=== PATIENT | male | born 1980 | race African-American/Black ===

== ENCOUNTER 2024-05-21 17:34 | Emergency (ER) | payer MEDICAID, OTHER ==
[~2024-05-21] VITALS: Ht 195.6 cm; Wt 78.0 kg
[~2024-05-21 17:34] MED LIST: AMOX1TAB16 MT; SULF1TAB48 MT
[2024-05-21 17:40] VITALS: BP 151/94; TEMP 97.5; O2SAT 99
[2024-05-21 17:44] VITALS: PULSE 110; RESP 17; O2SAT 98
== END 2024-05-21 20:26 | disposition left against medical advice (07) ==
LOC: ER 17:34
DX: R06.02 Shortness of breath (principal); Z53.21 Procedure and treatment not carried out due to patient leaving prior to being seen by health care provider
CPT/HCPCS: 93005

== ENCOUNTER 2024-07-05 12:28 | Emergency (ER) | payer MEDICAID, OTHER ==
[~2024-07-05] VITALS: Ht 195.6 cm; Wt 100.0 kg
[2024-07-05 12:33] VITALS: O2SAT 100
[2024-07-05] MEDS ORDERED: ONDANSETRON HCL 4MG/2ML INJ IV STA (13:02)
[2024-07-05] MEDS ORDERED: MORPHINE SULFATE 4 MG/ML INJ (FOR IV/IM USE) IV STA (13:02)
[2024-07-05] MEDS ORDERED: VANCOMYCIN 1G PREMIX 200 ML IV SCH ×2 (13:15)
[2024-07-05 14:57] LABS: CLARITY URINE CLEAR (CLEAR); COLOR URINE YELLOW (YELLOW); GLUCOSE URINE 3+ (NEGATIVE); KETONES URINE NEGATIVE (NEGATIVE); LEUKOCYTE ESTERASE URINE NEGATIVE (NEGATIVE); NITRITE URINE NEGATIVE (NEGATIVE); OCCULT BLOOD URINE NEGATIVE (NEGATIVE); PROTEIN URINE TRACE (NEGATIVE); SPECIFIC GRAVITY URINE 1.034 (1.005-1.030)
[2024-07-05 15:01] LABS: BASOPHILS % 0.9 % (0.0-2.0); EOSINOPHILS % 2.2 % (0.0-5.0); HEMATOCRIT. 41.3 % (42.0-52.0); HEMOGLOBIN. 14.1 g/dL (14.0-18.0); LYMPHOCYTES % 14.8 % (20.0-50.0); MEAN CORPUSCULAR HEMOGLOBIN 30.4 pg (28.0-32.0); MEAN CORPUSCULAR HGB CONC 34.2 g/dL (31.0-37.0); MONOCYTES % 7.4 % (2.0-8.0); NEUTROPHILS % 74.7 % (40.0-76.0); RED BLOOD CELL COUNT 4.64 mill/uL (4.7-6.1); RED CELL DISTRIBUTION WIDTH 13.4 % (11.6-14.6); WHITE BLOOD COUNT 9.7 x1000/uL (4.5-11.0)
[2024-07-05 15:05] LABS: CHLORIDE 97 mEq/L (98-107); POTASSIUM 3.6 mEq/L (3.5-5.1); SODIUM 132 mEq/L (136-145)
[2024-07-05 15:06] LABS: CARBON DIOXIDE 31 mEq/L (21-32)
[2024-07-05 15:07] LABS: CALCIUM 9.3 mg/dL (8.7-10.4)
[2024-07-05 15:10] LABS: DIFFERENTIAL COMMENT 1; PROTHROMBIN TIME 11.3 sec (9.6-11.0)
[2024-07-05 15:11] LABS: CREATININE 0.9 mg/dL (0.6-1.3); GLUCOSE 304 mg/dL (70-105); UREA NITROGEN BLOOD 7 mg/dL (9-23)
[2024-07-05 15:20] LABS: MUCUS URINE TRACE /lpf (NONE/TRACE); SQUAMOUS EPITHELIAL CELL URINE 1+ /lpf (RARE/1+)
[2024-07-05 15:21] LABS: BACTERIA URINE 1+; RBC URINE 0-2 /hpf (0-2); WBC URINE 0-2 /hpf (0-2)
[2024-07-05 15:22] LABS: MEAN PLATELET VOLUME 8.4 fl (7.4-10.4); PLATELET 376 x1000/uL (130-400)
[2024-07-05] MEDS: ONDANSETRON HCL 4MG/2ML INJ IV NR (15:36)
[2024-07-05] MEDS: MORPHINE SULFATE 4 MG/ML INJ (FOR IV/IM USE) IV NR (15:36)
[2024-07-05] MEDS: PIPERACILLIN/TAZO 3.375G/50ML 50 ML IV STA (15:36)
[2024-07-05] MEDS: SODIUM CHLORIDE 0.9% 1,000 ML IV ONE (15:36)
[2024-07-05] MEDS ORDERED: CIPR-263 MT ×2 (16:04→16:19)
[2024-07-05] MEDS ORDERED: IBUP-2028 MT (16:04)
[2024-07-05] MEDS: VANCOMYCIN 1GM PMX (XELLIA) 200 ML IV NR ×2 (17:30→17:34)
[2024-07-05 19:34] VITALS: BP 150/86; PULSE 89; RESP 16; TEMP 36.55848; O2SAT 100
[2024-07-05] MEDS ORDERED: IOHEXOL-300 100 ML BOTTLE ONE (23:32)
== END 2024-07-05 19:35 | disposition home or self-care (01) ==
LOC: ER 12:28
DX: K40.90 Unilateral inguinal hernia, without obstruction or gangrene, not specified as recurrent (principal); N50.819 Testicular pain, unspecified; Z79.899 Other long term (current) drug therapy
CPT/HCPCS: 80048; 81003; 85025; 85610; 87040; 36415; 72193; 93976; 76870; 96367; 96365; 96366; 96375; 99285; Q9967; J3370; J2405; J2543; J2270; J7030; Z7610 ×2

== ENCOUNTER 2024-11-05 16:12 | Emergency (ER) | payer MEDICAID, OTHER ==
[~2024-11-05] VITALS: Ht 185.4 cm; Wt 93.0 kg
[~2024-11-05 16:12] MED LIST changes: +CIPR-263 MT; +IBUP-2028 MT
[2024-11-05 16:14] VITALS: O2SAT 99
[2024-11-05] MEDS: ACETAMINOPHEN 325MG TABLET PO ONE (16:49)
[2024-11-05 18:10] LABS: HEMATOCRIT. 35.6 % (42.0-52.0); HEMOGLOBIN. 11.9 g/dL (14.0-18.0); MEAN CORPUSCULAR HGB CONC 33.5 g/dL (31.0-37.0); MEAN CORPUSCULAR VOLUME 86.7 fL (80.0-94.0); MEAN PLATELET VOLUME 8.2 fl (7.4-10.4); PLATELET 331 x1000/uL (130-400); RED BLOOD CELL COUNT 4.11 mill/uL (4.7-6.1); RED CELL DISTRIBUTION WIDTH 12.5 % (11.6-14.6); WHITE BLOOD COUNT 13.3 x1000/uL (4.5-11.0)
[2024-11-05 18:11] LABS: DIFFERENTIAL COMMENT 1
[2024-11-05] MEDS: MORPHINE SULFATE 4 MG/ML INJ (FOR IV/IM USE) IV STA ×3 (18:16→22:42)
[2024-11-05] MEDS: ONDANSETRON HCL 4MG/2ML INJ IV STA ×3 (18:17→22:42)
[2024-11-05 18:18] LABS: CARBON DIOXIDE 24 mEq/L (21-32); CHLORIDE 91 mEq/L (98-107); POTASSIUM 3.7 mEq/L (3.5-5.1); SODIUM 124 mEq/L (136-145)
[2024-11-05 18:19] LABS: CALCIUM 8.9 mg/dL (8.7-10.4); INR 1.2; PROTHROMBIN TIME 12.9 sec (9.6-11.0)
[2024-11-05 18:24] LABS: CREATININE 0.9 mg/dL (0.6-1.3); UREA NITROGEN BLOOD 8 mg/dL (9-23)
[2024-11-05 18:44] LABS: GLUCOSE 429 mg/dL (70-105)
[2024-11-05] MEDS: SODIUM CHLORIDE 0.9% 1,000 ML IV ONE ×2 (19:19)
[2024-11-05] MEDS: INSULIN REGULAR (HUMULIN R) 1000UNITS/10ML VIAL SUBCUT ONE (19:30)
[2024-11-05 20:12] LABS: PLATELET ESTIMATE NORMAL
[2024-11-05 22:45] VITALS: BP 158/80; TEMP 37.4; O2SAT 99
[2024-11-05 23:00] VITALS: PULSE 70; RESP 16
[2024-11-05] MEDS ORDERED: MORPHINE SULFATE 4 MG/ML INJ (FOR IV/IM USE) IV NR (23:00)
== END 2024-11-05 23:51 | disposition short-term general hospital (02) ==
LOC: ER 16:12 → EDBEDREQ 22:36 → EDBEDREQTM 22:36 → ER 23:51
DX: S02.40FA Zygomatic fracture, left side, initial encounter for closed fracture (principal); S02.40DA Maxillary fracture, left side, initial encounter for closed fracture; M25.552 Pain in left hip; E11.65 Type 2 diabetes mellitus with hyperglycemia; M16.11 Unilateral primary osteoarthritis, right hip; Z79.1 Long term (current) use of non-steroidal anti-inflammatories (NSAID); W01.0XXA Fall on same level from slipping, tripping and stumbling without subsequent striking against object, initial encounter; Y93.89 Activity, other specified; Y92.89 Other specified places as the place of occurrence of the external cause; Y99.8 Other external cause status
CPT/HCPCS: 99285; 70450; 96374; 71045; 96361; 96375; 80048; 82962; 85025; 85610; 85730; 86850; 86900; 86901; 36415; 73503; 73551; 72170; 72192; 73700; 93005; 96376; J2405; J2270; J7030

== ENCOUNTER 2025-01-27 23:13 | Emergency (ER) | payer MEDICAID ==
[~2025-01-27] VITALS: Ht 195.6 cm; Wt 90.0 kg
[2025-01-27 23:14] VITALS: O2SAT 100
[2025-01-28 00:52] VITALS: TEMP 36.9; O2SAT 97
[2025-01-28 00:53] VITALS: BP 136/94; PULSE 109; RESP 20
[2025-01-28] MEDS: KETOROLAC 30MG/ML VIAL IM ONE (00:53)
== END 2025-01-28 01:40 | disposition left against medical advice (07) ==
LOC: ER 23:13
DX: M25.559 Pain in unspecified hip (principal); Z79.899 Other long term (current) drug therapy
CPT/HCPCS: 99283; 96372; J1885; Z7610